=== PATIENT | male | born 1990 | race Caucasian/White ===

== ENCOUNTER 2019-03-29 13:22 | Emergency (ER) | payer SELFPAY ==
--- NOTE | 2019-03-29 13:47 | EDM.PDOC ---
<Harrison Reece - Last Filed: 03/29/19 19:44> ED HPI GENERAL MEDICAL PROBLEM - General Chief Complaint: Lower Extremity Injury/Pain Stated Complaint: RT ANKLE INJURY Time Seen by Provider: 03/29/19 13:35 - History of Present Illness INITIAL COMMENTS - FREE TEXT/NARRATIVE: Patient is a 28 year old male with a past medical history positive for multiple bilateral ankle injuiries who presents today 2 days status post a right ankle injury. The patient states he was [place] the dog park on [place] evening when he stepped into a hole and rolled his ankle. He had immediate pain and was unable to weight bear. He managed to get a brace, which he has been wearing since the injury. He has tried elevation, ice and tylenol, which does not seem to improve the pain. The patient complaints of pain and numbness in the right foot that radiates up his lateral leg. He rates his pain as a 6/10 with intermittent spikes to 7/10. He also reports "popping" with walking, and "feels like something is floating on the inside." He denies injury to his left ankle but states that it is sore following favoring of his right ankle. He has a history of previous ankle injuries, for which he has been told previously that he needs to wear continuous ankle braces. He does not currently wear continuous ankle braces. He also reports that he has a history of kidney injury and therefore cannot take NSAIDs. Onset: Sudden Onset Date: 03/27/19 Duration: Day(s): Location: Reports: Lower Extremity, Right Quality: Reports: Burning Right Ankle Pain Score (Numeric/FACES): 7 - Related Data Allergies Allergy/AdvReac Type Severity Reaction Status Date / Time amlodipine [From Norvasc] AdvReac Nausea and Verified 03/29/19 13:42 Vomiting diltiazem [From Cardizem] AdvReac Nausea and Verified 03/29/19 13:42 Vomiting Home Meds: Home Meds Albuterol [Proventil Neb Soln] 0 mg INH Q4HR PRN 03/29/19 [History] Budesonide/Formoterol Fumarate [Symbicort 160-4.5 Mcg Inhaler] 0 gm IH BID 03/29 [History] Cariprazine Hydrochloride [Vraylar] 3 mg PO DAILY 03/29/19 [History] ClonazePAM [KlonoPIN] 2 mg PO TID PRN 03/29/19 [History] Montelukast [Singulair] 10 mg PO DAILY 03/29/19 [History] Multivit-Min/Folic/Vit K/Lycop [Men's Multivitamin Tablet] 1 each PO DAILY 03/29 [History] Sodium Bicarbonate 650 mg PO DAILY 03/29/19 [History] Verapamil [Verapamil ER] 240 mg PO DAILY 03/29/19 [History] lamoTRIgine [Lamictal] 400 mg PO DAILY 03/29/19 [History] Past Medical History HEENT History: Reports: Impaired Vision Other HEENT History: Chronis Sinusitis Cardiovascular History: Reports: Hypertension Respiratory History: Reports: Asthma Gastrointestinal History: Reports: GI Bleed Genitourinary History: Reports: Acute Renal Failure, Dialysis, Peritoneal Other Genitourinary History: 2 urethral strictures. Posterior and anterior. Musculoskeletal History: Reports: Fracture Other Musculoskeletal History: Ankle, rib, C5-C6, skull, hand, wrist fractures. Rhabdo 2016. Neurological History: Reports: Brain Injury, Headaches, Chronic, Migraines, Seizure Other Neuro History: Asymmetric neurological reflexes. TBI. Psychiatric History: Reports: Anxiety, Bipolar, Depression Endocrine/Metabolic History: Reports: None Hematologic History: Reports: Blood Transfusion(s) Other Immunologic History: May have lupus. Oncologic (Cancer) History: Reports: None Dermatologic History: Reports: None - Infectious Disease History Infectious Disease History: Reports: None - Past Surgical History HEENT Surgical History: Reports: Oral Surgery Social & Family History - Tobacco Use Smoking Status *Q: Former Smoker Used Tobacco, but Quit: Yes Month/Year Tobacco Last Used: 12/2018 - Caffeine Use Caffeine Use: Reports: Coffee - Recreational Drug Use Recreational Drug Use: No Review of Systems - Review of Systems Review Of Systems: See Below Constitutional: Reports: No Symptoms Eyes: Reports: No Symptoms Ears: Reports: No Symptoms Nose: Reports: No Symptoms Mouth/Throat: Reports: No Symptoms Respiratory: Reports: No Symptoms Cardiovascular: Reports: No Symptoms GI/Abdominal: Reports: No Symptoms Genitourinary: Reports: No Symptoms Musculoskeletal: Reports: Joint Pain (Right ankle pain) Skin: Reports: No Symptoms Neurological: Reports: No Symptoms Psychiatric: Reports: No Symptoms ED EXAM, GENERAL - Physical Exam Exam: See Below Exam Limited By: No Limitations General Appearance: Alert, WD/WN, No Apparent Distress Ears: Normal External Exam, Hearing Grossly Normal Nose: Normal Inspection Throat/Mouth: Normal Inspection, Normal Voice Neck: Normal Inspection Respiratory/Chest: No Respiratory Distress, No Accessory Muscle Use Cardiovascular: Normal Peripheral Pulses, Regular Rate, Rhythm Course - Vital Signs Last Recorded V/S: Last Vital Signs Temp 97.6 F 03/29/19 13:26 Pulse 99 03/29/19 13:26 Resp 18 03/29/19 13:26 BP 123/73 03/29/19 13:26 Pulse Ox 94 L 03/29/19 13:26 - Orders/Labs/Meds Orders: Active Orders 24 hr Category Date Time Status Influenza Vaccine Charge [RC] .DISCHARGE Care 03/29/19 13:40 Active Meds: Medications Discontinued Medications Generic Name Dose Route Start Last Admin Trade Name Freq PRN Reason Stop Dose Admin Influenza Virus Vaccine 60 mcg 03/29/19 14:00 03/29/19 13:55 Fluzone Quad Syringe IM 03/29/19 14:01 60 mcg .ONCE ONE Administration Departure - Departure Disposition: Home, Self-Care Clinical Impression: Right ankle sprain Qualifiers: Encounter type: initial encounter Involved ligament of ankle: unspecified ligament Qualified Code(s): S93.401A - Sprain of unspecified ligament of right ankle, initial encounter - Discharge Information Instructions: Ankle Sprain, [id number] Referrals: PCP,None [Primary Care Provider] - Forms: ED Department Discharge Additional Instructions: Mejia wrap, ice packs and elevation to keep swelling down. Advil or tylenol as needed for discomfort. Rest and elevate leg and ankle as much as possible. Follow up with your medical provider if not much better within 10 to 14 days as expected. - My Orders Last 24 Hours: My Active Orders 03/29/19 13:40 Influenza Vaccine Charge [RC] .DISCHARGE - Assessment/Plan Last 24 Hours: My Active Orders 03/29/19 13:40 Influenza Vaccine Charge [RC] .DISCHARGE <Jose Manuel Clay - Last Filed: 03/29/19 21:13> ED HPI GENERAL MEDICAL PROBLEM - General Source of Information: Reports: Patient, RN Notes Reviewed Course - Re-Assessments/Exams Free Text/Narrative Re-Assessment/Exam: 03/29/19 21:12 Initial hx and exam was done by Tay Reece, medical student. I agree with her hx and exam as documented. I have also interviewed and examined patient. X rays no visible fx. Departure - Departure Time of Disposition: 14:33 Condition: Fair
[2019-03-29] MEDS ORDERED: FLU Vacc QS2019-20(6MOS+)/PF 60 MCG/0.5 ML SYRINGE IM ONE (14:00)
--- NOTE | 2019-03-29 14:39 | CR ---
Right ankle: Four views of the right ankle were obtained. Comparison: No prior ankle study. Ankle mortise is symmetric. No fracture, dislocation or other bony abnormality is seen. Impression: 1. No abnormality is appreciated on right ankle exam. Diagnostic code #1
== END 2019-03-29 14:43 | disposition home or self-care (01) ==
LOC: JD.ED 13:22
DX: S93.401A Sprain of unspecified ligament of right ankle, initial encounter (principal); I10 Essential (primary) hypertension; J45.909 Unspecified asthma, uncomplicated; Z88.8 Allergy status to other drugs, medicaments and biological substances; Z79.899 Other long term (current) drug therapy; Z87.891 Personal history of nicotine dependence; Z23 Encounter for immunization; X50.1XXA Overexertion from prolonged static or awkward postures, initial encounter; Y92.830 Public park as the place of occurrence of the external cause
CPT/HCPCS: 73610-26-RT; 73610-RT; 90471; 90686; 99282; 99283-25; G0008

== ENCOUNTER 2019-06-10 02:59 | Emergency (ER) | payer BC, OTHER ==
[2019-06-10] MEDS ORDERED: Orphenadrine 100 MG Tab.ER PO STA (03:25)
--- NOTE | 2019-06-10 03:29 | EDM.PDOC ---
ED HPI GENERAL MEDICAL PROBLEM - General Chief Complaint: Chest Pain Stated Complaint: [facility] Time Seen by Provider: 06/10/19 03:08 Source of Information: Reports: Patient, Family () History Limitations: Reports: No Limitations - History of Present Illness INITIAL COMMENTS - FREE TEXT/NARRATIVE: Mr. King is a pleasant 28-year-old male with a past medical history significant for hypertension, who brought to the ED by EMS after developing sudden onset central chest pressure around 01:25, he was driving. He states that the sensation is a pain, not a discomfort. It radiates across his chest, to his right shoulder, and down to his abdomen. It is made worse if he breathes deeply. No associated nausea, dyspnea, diaphoresis, or sense of impending doom. No prior similar symptoms. EMS did not give any medications. The patient's PCP is Leah Lan NP. His Urologist is in [place], [place]. 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: EKG Right Upper Chest Pain Score (Numeric/FACES): 8 - Related Data Allergies Allergy/AdvReac Type Severity Reaction Status Date / Time amlodipine [From Norvasc] AdvReac Nausea and Verified 06/10/19 03:03 Vomiting diltiazem [From Cardizem] AdvReac Nausea and Verified 06/10/19 03:03 Vomiting Home Meds: Home Meds Albuterol [Proventil Neb Soln] 0 mg INH Q4HR PRN 03/29/19 [History] Budesonide/Formoterol Fumarate [Symbicort 160-4.5 Mcg Inhaler] 0 gm IH BID 03/29 [History] ClonazePAM [KlonoPIN] 2 mg PO TID PRN 03/29/19 [History] Montelukast [Singulair] 10 mg PO DAILY 03/29/19 [History] Multivit-Min/Folic/Vit K/Lycop [Men's Multivitamin Tablet] 1 each PO DAILY 03/29 [History] Sodium Bicarbonate 650 mg PO DAILY 03/29/19 [History] Verapamil [Verapamil ER] 240 mg PO DAILY 03/29/19 [History] lamoTRIgine [Lamictal] 400 mg PO DAILY 03/29/19 [History] Citalopram Hydrobromide [Celexa] 20 mg PO DAILY 06/10/19 [History] Orphenadrine [Norflex] 1 tab PO Q12H PRN #14 tab.er 06/10/19 [Rx] Past Medical History HEENT History: Reports: Impaired Vision, Sinusitis (chronic) Cardiovascular History: Reports: Hypertension Respiratory History: Reports: Asthma (PFT-confirmed) Genitourinary History: Reports: Acute Renal Failure (2016, 2 rhabdomyolysis, on PD, resolved), Other (See Below) (Urethral stricture x 2) Musculoskeletal History: Reports: Fracture (Skull. C5-C6. Left hand. Left ribs. Right ankle.), Other (See Below) (Rhabdomyolysis 2016) Neurological History: Reports: Brain Injury (6 yrs old), Other (See Below) ( Cluster HAs) Psychiatric History: Reports: Anxiety, Bipolar, Depression Endocrine/Metabolic History: Reports: Obesity/BMI 30+ Hematologic History: Reports: Blood Transfusion(s) - Past Surgical History HEENT Surgical History: Reports: Oral Surgery (wisdom teeth extraction) Male Surgical History: Reports: Other (See Below) (Urethrotomy + dilation) Social & Family History - Tobacco Use Smoking Status *Q: Former Smoker Years of Tobacco use: 18 Packs/Tins Daily: 1.5 Month/Year Tobacco Last Used: Quit Dec 2018 - Caffeine Use Caffeine Use: Reports: Coffee - Alcohol Use Alcohol Use History: Yes Alcohol Use Frequency: Socially - Recreational Drug Use Recreational Drug Use: Yes Drug Use in Last 12 Months: Yes Recreational Drug Type: Reports: Ecstasy (last took 2013), LSD (Acid) (last took 2013), Marijuana/Hashish (last smoked 2015), Methamphetamine (last snorted/ smoked/injected 11/03/2018), Psilocybin (Mushrooms) (last took 2013) - Living Situation & Occupation Living situation: Reports: , with Spouse 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 ED EXAM, GENERAL - Physical Exam Exam: See Below Exam Limited By: No Limitations General Appearance: Alert, WD/WN, Mild Distress (Keeping eyes closed, speaking just louder than a whisper) Eye Exam: Bilateral Eye: EOMI, Normal Inspection Ears: Normal External Exam, Hearing Grossly Normal Nose: Normal Inspection Throat/Mouth: Normal Inspection, Normal Lips, Normal Voice, No Airway Compromise Head: Atraumatic, Normocephalic Neck: Normal Inspection, Full Range of Motion Respiratory/Chest: No Respiratory Distress, Lungs Clear, Normal Breath Sounds, No Accessory Muscle Use, Other (Reproducible tenderness to palpation of the patient's sternum and bilateral pectoralis muscles. Additionally, pain is reproduced by having the patient presses hands together with his arms outstretched in front of his chest, and with crossing either of his arms across his chest.) Cardiovascular: Normal Peripheral Pulses, Regular Rate, Rhythm, No Edema, No Gallop, No JVD, No Murmur, No Rub Peripheral Pulses: 4+: Radial (L), Radial (R) GI/Abdominal: Normal Bowel Sounds, Soft, Non-Tender, No Organomegaly, No Distention, No Abnormal Bruit, No Mass (Male) Exam: Deferred Rectal (Males) Exam: Deferred Back Exam: Normal Inspection, Full Range of Motion, NT Extremities: Normal Inspection, Normal Range of Motion, No Pedal Edema, Normal Capillary Refill Neurological: Alert, Oriented, Normal Cognition, No Motor/Sensory Deficits Psychiatric: Anxious Skin Exam: Warm, Dry, Intact, Normal Color, No Rash EKG INTERPRETATION EKG Date: 06/10/19 Time: 03:31 Rhythm: NSR Rate (Beats/Min): 70 [place]: Normal P-Wave: Present QRS: Normal ST-T: Normal QT: Normal Comparison: NA - No Prior EKG Course - Vital Signs Last Recorded V/S: Last Vital Signs Temp 36.2 C 06/10/19 03:01 Pulse 75 06/10/19 03:01 Resp 16 06/10/19 03:01 BP 135/97 H 06/10/19 03:01 Pulse Ox 96 06/10/19 03:01 - Orders/Labs/Meds Labs: Laboratory Tests 06/10/19 06/10/19 06/10/19 Range/Units 03:39 03:39 03:39 WBC 7.80 (4.23-9.07) K/mm3 RBC 5.38 (4.63-6.08) M/mm3 Hgb 14.9 (13.7-17.5) gm/dl Hct 44.1 (40.1-51.0) % MCV 82.0 (79.0-92.2) fl MCH 27.7 (25.7-32.2) pg MCHC 33.8 (32.2-35.5) g/dl RDW Std Deviation 38.6 (35.1-43.9) fL Plt Count 267 (163-337) K/mm3 MPV 9.3 L (9.4-12.3) fl Neut % (Auto) 49.8 (34.0-67.9) % Lymph % (Auto) 36.8 (21.8-53.1) % Hinds % (Auto) 9.0 (5.3-12.2) % Eos % (Auto) 3.5 (0.8-7.0) Baso % (Auto) 0.5 (0.1-1.2) % Neut # (Auto) 3.89 (1.78-5.38) K/mm3 Lymph # (Auto) 2.87 (1.32-3.57) K/mm3 Hinds # (Auto) 0.70 (0.30-0.82) K/mm3 Eos # (Auto) 0.27 (0.04-0.54) K/mm3 Baso # (Auto) 0.04 (0.01-0.08) K/mm3 D-Dimer, Quantitative 0.28 (0.19-0.50) mg/L Sodium 136 (136-145) mEq/L Potassium 3.2 L (3.5-5.1) mEq/L Chloride 103 (98-107) mEq/L Carbon Dioxide 20 L (21-32) mEq/L Anion Gap 16.2 H (5-15) BUN 18 (7-18) mg/dL Creatinine 1.1 (0.7-1.3) mg/dL Est Cr Clr Drug Dosing 95.00 mL/min Estimated GFR (MDRD) > 60 (>60) mL/min BUN/Creatinine Ratio 16.4 (14-18) Glucose 105 (74-106) mg/dL Calcium 9.4 (8.5-10.1) mg/dL Total Bilirubin 0.3 (0.2-1.0) mg/dL AST 36 (15-37) U/L ALT 78 H (16-63) U/L Alkaline Phosphatase 57 (46-116) U/L Troponin I < 0.017 (0.00-0.056) ng/mL NT-Pro-B Natriuret Pep (0-125) pg/mL Total Protein 7.3 (6.4-8.2) g/dl Albumin 3.9 (3.4-5.0) g/dl Globulin 3.4 gm/dL Albumin/Globulin Ratio 1.2 (1-2) 06/10/19 Range/Units 03:39 WBC (4.23-9.07) K/mm3 RBC (4.63-6.08) M/mm3 Hgb (13.7-17.5) gm/dl Hct (40.1-51.0) % MCV (79.0-92.2) fl MCH (25.7-32.2) pg MCHC (32.2-35.5) g/dl RDW Std Deviation (35.1-43.9) fL Plt Count (163-337) K/mm3 MPV (9.4-12.3) fl Neut % (Auto) (34.0-67.9) % Lymph % (Auto) (21.8-53.1) % Hinds % (Auto) (5.3-12.2) % Eos % (Auto) (0.8-7.0) Baso % (Auto) (0.1-1.2) % Neut # (Auto) (1.78-5.38) K/mm3 Lymph # (Auto) (1.32-3.57) K/mm3 Hinds # (Auto) (0.30-0.82) K/mm3 Eos # (Auto) (0.04-0.54) K/mm3 Baso # (Auto) (0.01-0.08) K/mm3 D-Dimer, Quantitative (0.19-0.50) mg/L Sodium (136-145) mEq/L Potassium (3.5-5.1) mEq/L Chloride (98-107) mEq/L Carbon Dioxide (21-32) mEq/L Anion Gap (5-15) BUN (7-18) mg/dL Creatinine (0.7-1.3) mg/dL Est Cr Clr Drug Dosing mL/min Estimated GFR (MDRD) (>60) mL/min BUN/Creatinine Ratio (14-18) Glucose (74-106) mg/dL Calcium (8.5-10.1) mg/dL Total Bilirubin (0.2-1.0) mg/dL AST (15-37) U/L ALT (16-63) U/L Alkaline Phosphatase (46-116) U/L Troponin I (0.00-0.056) ng/mL NT-Pro-B Natriuret Pep 40 (0-125) pg/mL Total Protein (6.4-8.2) g/dl Albumin (3.4-5.0) g/dl Globulin gm/dL Albumin/Globulin Ratio (1-2) Meds: Medications Discontinued Medications Generic Name Dose Route Start Last Admin Trade Name Ernesto PRN Reason Stop Dose Admin Orphenadrine Citrate 100 mg 06/10/19 03:25 06/10/19 03:35 Norflex PO 06/10/19 03:26 100 mg ONETIME STA Administration - Re-Assessments/Exams Free Text/Narrative Re-Assessment/Exam: 06/10/19 03:27 The patient's history and physical exam strongly suggest a musculoskeletal etiology. I have ordered a cardiac workup that I anticipate will be unremarkable. In the meantime, the patient will be treated with oral Norflex. He is already on celecoxib. 06/10/19 04:51 2-view chest radiograph appears to be grossly normal. The cardiac silhouette is within normal limits. No pulmonary vascular congestion. No pleural effusions. No focal infiltrate. No pneumothorax. Formal read per the Radiologist pending. The patient's CBC is unremarkable. His CMP is remarkable for potassium mildly depressed at 3.2, bicarbonate mildly depressed at 20, with an anion gap slightly elevated at 16.2, and an ALT slightly elevated at 78, with an AST normal at 36. The remainder of his CMP is unremarkable. His troponin is undetectably low. His D-dimer is within normal limits at 0.28. 06/10/19 05:00 Test results discussed with the patient and his . The patient is feeling much better already. I explained that his symptoms appear to be due to muscle strain. The patient recalled that on 06/08/2019, he slipped and fell, and in order to not break his wrist, he rolled, squeezing his shoulders. The patient will be discharged home with a prescription for Norflex and a note that allows him to return to work. Departure - Departure Time of Disposition: 05:01 Disposition: Home, Self-Care 01 Condition: Good Clinical Impression: Musculoskeletal chest pain - Discharge Information *PRESCRIPTION DRUG MONITORING PROGRAM REVIEWED*: Not Applicable *COPY OF PRESCRIPTION DRUG MONITORING REPORT IN PATIENT LEANNA: Not Applicable Prescriptions: Orphenadrine [Norflex] 1 tab PO Q12H PRN #14 tab.er PRN Reason: Muscle Spasm Instructions: Chest Wall Pain Referrals: Ryanne Lan NP [Primary Care Provider] - Forms: ED Department Discharge, ED Return to Work/School Form Additional Instructions: You were seen in the emergency room for sudden onset central chest pain, while driving. Workup in the ER included blood work, a chest x-ray, and an ECG. The entire workup was unremarkable. You have not suffered a heart attack. You do not have a blood clot in your lungs. You do not have pneumonia. You do not have a collapsed lung. Based on your history, physical exam, and ER tests, the cause of your chest pain is most likely musculoskeletal in etiology. You have been started on the muscle relaxant Norflex, and a prescription for Norflex has been sent to the [facility], located just south and across the [address] from [facility]. Take one tablet of Norflex every 12 hours, as prescribed. Additional Norflex, we recommend that you continue to take your usually prescribed Celebrex. If any other problems, please do not hesitate to return to the ER. Sepsis Event Note - Evaluation Sepsis Screening Result: No Definite Risk - Focused Exam Date Exam was Performed: 06/12/19 Time Exam was Performed: 07:39
--- NOTE | 2019-06-10 07:57 | CR ---
Chest: Two views of the chest were obtained. Comparison: No prior chest imaging. Heart size and mediastinum are normal. Lungs are clear. Bony structures are unremarkable. Impression: 1. Nothing acute is appreciated on two-view chest x-ray. Diagnostic code #1 This report was dictated in [place] Standard Time
== END 2019-06-10 05:05 | disposition home or self-care (01) ==
LOC: JD.ED 02:59
DX: R07.89 Other chest pain (principal); I10 Essential (primary) hypertension; F41.9 Anxiety disorder, unspecified; F32.9 Major depressive disorder, single episode, unspecified; E66.9 Obesity, unspecified; Z98.890 Other specified postprocedural states; Z79.899 Other long term (current) drug therapy; Z88.8 Allergy status to other drugs, medicaments and biological substances; Z87.891 Personal history of nicotine dependence
CPT/HCPCS: 36415; 71046; 80053; 83880; 84484; 85025; 85379; 93005; 99285; A9270; 93010; 99283

== ENCOUNTER 2019-07-16 18:15 | Emergency (ER) | payer BC ==
[2019-07-16] MEDS ORDERED: Ondansetron 4 MG/2 ML SDV IVPUSH ONE (19:13)
[2019-07-16] MEDS ORDERED: HYDROmorphone 1 MG/ML Syringe IVPUSH STA (19:13)
--- NOTE | 2019-07-16 19:23 | EDM.PDOC ---
ED HPI GENERAL MEDICAL PROBLEM - General Chief Complaint: Abdominal Pain Stated Complaint: ABDOMINAL PAIN Time Seen by Provider: 07/16/19 18:43 Source of Information: Reports: Patient, RN Notes Reviewed History Limitations: Reports: No Limitations - History of Present Illness INITIAL COMMENTS - FREE TEXT/NARRATIVE: Patient is a 28-year-old male who presents to the ED for the evaluation of increasing abdominal pain. Patient notes that he is having some right lower quadrant abdominal pain since last , and this does seem to radiate to the left lower quadrant. 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 He notes that the bumps in the road do seem to aggravate it but not as much as the lateral movement. Patient developed tenderness into his left upper quadrant today as well which caused him to seek care. He was evaluated at the walk-in clinic but was told to come to the ER for further evaluation. Patient is denying any sort of fevers or chills, nausea/vomiting/diarrhea. Patient states that he has been having issues with his bowels as well, he states that he has been having some real painful bowel movements, he states that he feels full, and then strains quite a bit and has had some loose stools. Patient has not been on any sort of recent antibiotics. Patient notes that his primary care provider is Ryanne Lan. He does have problems with urinary strictures, but states he is not having any more issues than normal with urination. Lower Abdomen Pain Score (Numeric/FACES): 5 - Related Data Allergies Allergy/AdvReac Type Severity Reaction Status Date / Time amlodipine [From Norvasc] AdvReac Nausea and Verified 07/16/19 18:23 Vomiting diltiazem [From Cardizem] AdvReac Nausea and Verified 07/16/19 18:23 Vomiting Home Meds: Home Meds Albuterol [Proventil Neb Soln] 2 puff INH Q4HR PRN 03/29/19 [History] Budesonide/Formoterol Fumarate [Symbicort 160-4.5 Mcg Inhaler] 1 puff IH BID 06/16 [History] ClonazePAM [KlonoPIN] 2 mg PO TID PRN 03/29/19 [History] Montelukast [Singulair] 10 mg PO DAILY 03/29/19 [History] Multivit-Min/Folic/Vit K/Lycop [Men's Multivitamin Tablet] 1 each PO DAILY 03/29 [History] Sodium Bicarbonate 650 mg PO DAILY 03/29/19 [History] Dicyclomine [Bentyl] 20 mg PO TID PRN #21 tab 07/16/19 [Rx] Orphenadrine [Norflex] 100 mg PO BID PRN #14 tab 07/16/19 [Rx] Past Medical History HEENT History: Reports: Impaired Vision, Sinusitis Other HEENT History: Chronis Sinusitis Cardiovascular History: Reports: Hypertension Respiratory History: Reports: Asthma Gastrointestinal History: Reports: GI Bleed Genitourinary History: Reports: Acute Renal Failure, Other (See Below) Other Genitourinary History: urethral strictures Musculoskeletal History: Reports: Fracture, Other (See Below) Other Musculoskeletal History: Ankle, rib, C5-C6, skull, hand, wrist fractures. Rhabdo 2016. Neurological History: Reports: Brain Injury, Other (See Below) Other Neuro History: Asymmetric neurological reflexes. TBI. 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 Denies: Black Stool, Bloody Stool, Nausea, Vomiting : Denies: Dysuria, Frequency, Urgency Musculoskeletal: Denies: Back Pain ED EXAM, GI/ABD - Physical Exam Exam: See Below Exam Limited By: No Limitations General Appearance: Alert, WD/WN, No Apparent Distress Eyes: Bilateral: Normal Appearance Ears: Normal External Exam Nose: Normal Inspection Throat/Mouth: Normal Inspection, Normal Lips, Normal Teeth, Normal Gums, Normal Oropharynx, Normal Voice, No Airway Compromise Head: Atraumatic, Normocephalic Neck: Normal Inspection Respiratory/Chest: No Respiratory Distress, Lungs Clear, Normal Breath Sounds, No Accessory Muscle Use, Chest Non-Tender Cardiovascular: Normal Peripheral Pulses, Regular Rate, Rhythm, No Edema, No Murmur GI/Abdominal Exam: Normal Bowel Sounds, Soft, No Distention, No Mass, Tender ( generalized, but worse over Left abdomen) Extremities: Normal Inspection, Normal Capillary Refill Neurological: Alert, Oriented, Normal Cognition, No Motor/Sensory Deficits Psychiatric: Normal Affect, Normal Mood Skin Exam: Warm, Dry, Intact, Normal Color, No Rash Course - Vital Signs Last Recorded V/S: Last Vital Signs Temp 97.1 F 07/16/19 18:21 Pulse 92 07/16/19 18:21 Resp 19 07/16/19 18:21 BP 146/91 H 07/16/19 18:21 Pulse Ox 96 07/16/19 18:21 - Orders/Labs/Meds Orders: Active Orders 24 hr Category Date Time Status Abdomen Pelvis w Cont [CT] Stat Exams 07/16/19 19:13 Ordered UA W/MICROSCOPIC [URIN] Stat Lab 07/16/19 19:13 Ordered Sodium Chloride 0.9% [Normal Saline] 1,000 ml Med 07/16/19 19:15 Ordered IV ASDIRECTED Sodium Chloride 0.9% [Saline Flush] Med 07/16/19 20:30 Active 10 ml FLUSH ONETIME PRN Medication Orders Sodium Chloride (Normal Saline) 1,000 mls @ 999 mls/hr IV ASDIRECTED MALI Last Admin: 07/16/19 21:28 Dose: 999 mls/hr Infusion: 07/16/19 20:53 Dose: 999 mls/hr Admin: 07/16/19 19:52 Dose: 999 mls/hr Sodium Chloride (Saline Flush) 10 ml FLUSH ONETIME PRN PRN Reason: KEEP VEIN OPEN Last Admin: 07/16/19 21:34 Dose: 10 ml Admin: 07/16/19 19:38 Dose: 10 ml Labs: Laboratory Tests 02/18/20 02/18/20 02/18/20 Range/Units 19:36 19:36 22:40 WBC 7.48 (4.23-9.07) K/mm3 RBC 5.85 (4.63-6.08) M/mm3 Hgb 16.3 (13.7-17.5) gm/dl Hct 49.2 (40.1-51.0) % MCV 84.1 (79.0-92.2) fl MCH 27.9 (25.7-32.2) pg MCHC 33.1 (32.2-35.5) g/dl RDW Std Deviation 40.8 (35.1-43.9) fL Plt Count 295 (163-337) K/mm3 MPV 9.5 (9.4-12.3) fl Neutrophils % (Manual) 62 H (40-60) % Band Neutrophils % 0 (0-10) % Lymphocytes % (Manual) 29 (20-40) % Atypical Lymphs % 0 % Monocytes % (Manual) 6 (2-10) % Eosinophils % (Manual) 3 (0.8-7.0) % Basophils % (Manual) 0 L (0.2-1.2) Platelet Estimate Adequate Plt Morphology Comment Normal RBC Morph Comment Normal Sodium 141 (136-145) mEq/L Potassium 4.1 (3.5-5.1) mEq/L Chloride 104 (98-107) mEq/L Carbon Dioxide 25 (21-32) mEq/L Anion Gap 16.1 H (5-15) BUN 15 (7-18) mg/dL Creatinine 0.8 (0.7-1.3) mg/dL Est Cr Clr Drug Dosing 130.63 mL/min Estimated GFR (MDRD) > 60 (>60) mL/min BUN/Creatinine Ratio 18.8 H (14-18) Glucose 144 H (74-106) mg/dL Calcium 9.4 (8.5-10.1) mg/dL Total Bilirubin 0.3 (0.2-1.0) mg/dL AST 24 (15-37) U/L ALT 79 H (16-63) U/L Alkaline Phosphatase 83 (46-116) U/L Total Protein 7.8 (6.4-8.2) g/dl Albumin 3.8 (3.4-5.0) g/dl Globulin 4.0 gm/dL Albumin/Globulin Ratio 1.0 (1-2) Lipase 129 (73-393) U/L Urine Color Yellow (Yellow) Urine Appearance Clear (Clear) Urine pH 6.0 (5.0-8.0) Ur Specific [place] 1.015 (1.005-1.030) Urine Protein Negative (Negative) Urine Glucose (UA) Negative (Negative) Urine Ketones Negative (Negative) Urine Occult Blood Negative (Negative) Urine Nitrite Negative (Negative) Urine Bilirubin Negative (Negative) Urine Urobilinogen 0.2 (0.2-1.0) Ur Leukocyte Esterase Trace H (Negative) Meds: Medications Generic Name Dose Route Start Last Admin Trade Name Freq PRN Reason Stop Dose Admin Sodium Chloride 1,000 mls @ 999 mls/hr 07/16/19 19:15 07/16/19 21:28 Normal Saline IV 999 mls/hr ASDIRECTED MALI Administration Sodium Chloride 10 ml 07/16/19 20:30 07/16/19 21:34 Saline Flush FLUSH 10 ml ONETIME PRN Administration KEEP VEIN OPEN Discontinued Medications Generic Name Dose Route Start Last Admin Trade Name Freq PRN Reason Stop Dose Admin Diatrizoate Meglum/Diatrizoate Sod 60 ml 07/16/19 20:30 07/16/19 21:33 Gastrografin 37% PO 07/16/19 20:31 60 ml ONETIME ONE Administration Hydromorphone HCl 1 mg 07/16/19 19:13 07/16/19 19:38 Dilaudid IVPUSH 07/16/19 19:14 1 mg ONETIME STA Administration Sodium Chloride 1,000 mls @ 999 mls/hr 07/16/19 21:30 07/16/19 21:45 Normal Saline IV 07/16/19 22:30 999 mls/hr ONETIME ONE Administration Iopamidol 100 ml 07/16/19 20:30 07/16/19 21:34 Isovue-300 (61%) IVPUSH 07/16/19 20:31 100 ml ONETIME ONE Administration Ondansetron HCl 4 mg 07/16/19 19:13 07/16/19 19:38 Zofran IVPUSH 07/16/19 19:14 4 mg ONETIME ONE Administration - Re-Assessments/Exams Free Text/Narrative Re-Assessment/Exam: 07/16/19 19:27 Patient presents to the ED for evaluation of abdominal pain. Did order CBC, CMP , lipase, urinalysis, abdomen pelvis CT with oral and IV contrast, he will also get 1 mg Dilaudid and 4 mg Zofran for initial management with some IV fluids. Unsure to the etiology of his pain, as it seems to have traveled. But with his bowel issues, is suggestive of possible diverticulitis versus colitis. 07/16/19 23:01 CT is back, and demonstrates no acute intra-abdominal abnormalities, labs are also pretty unremarkable. Patient is still having cramping type pains. Suspect may be an abdominal muscle strain as well. He was also relating issues with bowels where the either has diarrhea, or is constipated at times. Ice told him he should probably be further evaluated for IBS through his primary care provider, and he will do this at the next available time. Departure - Departure Time of Disposition: 23:04 Disposition: Home, Self-Care 01 Condition: Fair Clinical Impression: Abdominal wall strain Qualifiers: Encounter type: initial encounter Qualified Code(s): S39.011A - Strain of muscle, fascia and tendon of abdomen, initial encounter Constipation Qualifiers: Constipation type: other constipation type Qualified Code(s): K59.09 - Other constipation - Discharge Information *PRESCRIPTION DRUG MONITORING PROGRAM REVIEWED*: No *COPY OF PRESCRIPTION DRUG MONITORING REPORT IN PATIENT LEANNA: No Instructions: Muscle Strain, [id number], Diet for Irritable Bowel Syndrome, Irritable Bowel Syndrome, Adult Referrals: Ryanne Lan NP [Primary Care Provider] - Forms: ED Department Discharge, ED Return to Work/School Form Additional Instructions: You were evaluated in the ER today regarding your abdominal pain. You had laboratory evaluation and a CT done today, all of which were unremarkable and within normal limits. Your pain is most likely due to abdominal muscle strain in nature, you were given some Norflex for management of this, you may also take 500 mg Tylenol every 4-6 hours as needed for further pain relief. Do not exceed over 4000 mg of Tylenol in a 24-hour time span however. You may also try a heating pad to your abdomen, to help provide further relief. It is highly suspicious that you might be suffering from irritable bowel syndrome as well. Recommend further evaluation by your primary care provider in regards to this. You were given some tablets of dicyclomine, this is for abdominal cramping, due to the suspected irritable bowel syndrome. Please take 1 tab 3 times a day as needed for further abdominal cramping. Your CT did demonstrate quite a bit of stool throughout your colon, recommend that you start taking MiraLAX on a daily basis and also start taking probiotics to provide good gut health and help regulate your bowels. Please return to the ER at any time however if your symptoms change or worsen. Sepsis Event Note - Evaluation Sepsis Screening Result: No Definite Risk - Focused Exam Vital Signs: Vital Signs Temp Pulse Resp BP Pulse Ox 07/16/19 18:21 97.1 F 92 19 146/91 H 96 Date Exam was Performed: 07/16/19 Time Exam was Performed: 23:01 - My Orders Last 24 Hours: My Active Orders 07/16/19 19:13 Abdomen Pelvis w Cont [CT] Stat UA W/MICROSCOPIC [URIN] Stat 07/16/19 19:15 Sodium Chloride 0.9% [Normal Saline] 1,000 ml IV ASDIRECTED 07/16/19 20:30 Sodium Chloride 0.9% [Saline Flush] 10 ml FLUSH ONETIME PRN - Assessment/Plan Last 24 Hours: My Active Orders 07/16/19 19:13 Abdomen Pelvis w Cont [CT] Stat UA W/MICROSCOPIC [URIN] Stat 07/16/19 19:15 Sodium Chloride 0.9% [Normal Saline] 1,000 ml IV ASDIRECTED 07/16/19 20:30 Sodium Chloride 0.9% [Saline Flush] 10 ml FLUSH ONETIME PRN
[2019-07-16] MEDS: Sodium Chloride 0.9% 10 ML Syringe FLUSH PRN ×2 (19:38→21:34)
[2019-07-16] MEDS: Sodium Chloride 0.9% 1,000 ML IV SCH ×2 (19:52→21:28)
[2019-07-16] MEDS ORDERED: Diatrizoate Meglumine/Diatrizoate Sodium 37% 120 ML Bottle PO ONE (20:30)
[2019-07-16] MEDS ORDERED: Iopamidol 612 MG/ML 100 ML Bottle IVPUSH ONE (20:30)
[2019-07-16] MEDS ORDERED: Sodium Chloride 0.9% 1,000 ML IV ONE (21:30)
[2019-07-16] MEDS ORDERED: Orphenadrine 100 MG Tab.ER PO ONE (23:02)
[2019-07-16] MEDS ORDERED: Dicyclomine 10 MG Cap PO ONE (23:02)
--- NOTE | 2019-07-17 07:43 | CT ---
CT abdomen and pelvis Technique: Multiple axial sections were obtained from above the dome of the diaphragm inferiorly through the pubic symphysis. Intravenous and oral contrast was utilized. Delayed images were obtained through the bladder. Comparison: No prior abdominal imaging. Findings: Visualized lung bases show nothing acute. Diffuse fatty infiltration is identified within the liver. Spleen appears within normal limits. Adrenal glands show no nodule. Pancreas is within normal limits. Kidneys show symmetric contrast enhancement without hydronephrosis or mass. Gallbladder contains no calcified gallstones. Kidneys show symmetric contrast enhancement with no hydronephrosis or mass. Aorta shows no aneurysm. No retroperitoneal adenopathy or mesenteric abnormalities are seen. Appendix is seen which is normal in size. No pelvic mass or adenopathy is noted. No free fluid or inflammatory change is seen. Contrast is noted within both distal ureters. Contrast is also noted within the bladder. Bone window settings were reviewed. No acute osseous finding is appreciated. Impression: 1. Diffuse fatty infiltration within the liver. 2. Nothing acute is appreciated on CT study of the abdomen and pelvis. Diagnostic code #2 This report was dictated in [place] Standard Time I agree with preliminary report from [facility], finalized on , 10:59 PM Central Time
== END 2019-07-16 23:27 | disposition home or self-care (01) ==
LOC: JD.ED 18:15
DX: S39.011A Strain of muscle, fascia and tendon of abdomen, initial encounter (principal); K59.09 Other constipation; I10 Essential (primary) hypertension; J45.909 Unspecified asthma, uncomplicated; E66.9 Obesity, unspecified; Z68.41 Body mass index [BMI] 40.0-44.9, adult; Z88.8 Allergy status to other drugs, medicaments and biological substances; Z87.891 Personal history of nicotine dependence; Z79.899 Other long term (current) drug therapy; Z79.51 Long term (current) use of inhaled steroids; X58.XXXA Exposure to other specified factors, initial encounter
CPT/HCPCS: 36415; 74177; 80053; 81001; 83690; 85007; 85027; 96361; 96374; 96375; 99284; A9270; J1170; J2405; J7030; Q9963; Q9967

== ENCOUNTER 2019-07-31 19:57 | Emergency (ER) | payer BC ==
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
[2019-07-31 21:33] LABS: ACETAMINOPHEN 0 ug/mL (10-30)
== END 2019-08-01 01:00 ==
LOC: JD.ED 19:57
DX: R45.851 Suicidal ideations (principal); E66.9 Obesity, unspecified; I10 Essential (primary) hypertension; J45.909 Unspecified asthma, uncomplicated; Z88.8 Allergy status to other drugs, medicaments and biological substances; Z87.891 Personal history of nicotine dependence
CPT/HCPCS: 36415; 80053; 80306; 80307; 84443; 85007; 85027; 99284; 99285

== ENCOUNTER 2019-09-07 17:04 | Emergency (ER) | payer BC ==
[2019-09-07] MEDS ORDERED: Sodium Chloride 0.9% 10 ML Syringe FLUSH PRN (17:51)
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
--- NOTE | 2019-09-08 10:48 | CR ---
Chest: PA and lateral views of the chest were obtained. Comparison: Prior chest x-ray of 06/10/19. Heart size and mediastinum are normal. Lungs are clear with no acute parenchymal change. Bony structures are unremarkable. Impression: 1. Nothing acute is appreciated on 2 view chest x-ray. Diagnostic code #1 Study was dictated in MDT
== END 2019-09-07 19:30 | disposition home or self-care (01) ==
LOC: JD.ED 17:04
DX: I10 Essential (primary) hypertension (principal); J45.909 Unspecified asthma, uncomplicated; E66.9 Obesity, unspecified; Z68.41 Body mass index [BMI] 40.0-44.9, adult; Z88.8 Allergy status to other drugs, medicaments and biological substances
CPT/HCPCS: 36415; 71046; 71046-26; 80053; 83735; 83880; 84484; 85007; 85027; 85610; 85730; 93005; 93010; 99283; 99284-25

== ENCOUNTER 2019-12-20 16:58 | Emergency (ER) | payer SELFPAY ==
--- NOTE | 2019-12-20 17:17 | EDM.PDOC ---
<Henry Lozada - Last Filed: 12/20/19 17:12> ED HPI GENERAL MEDICAL PROBLEM - General Chief Complaint: Chest Pain Stated Complaint: CHEST PAIN AND SOB Time Seen by Provider: 12/20/19 17:12 Left Chest Pain Score (Numeric/FACES): 5 - Related Data Allergies Allergy/AdvReac Type Severity Reaction Status Date / Time amlodipine [From Norvasc] AdvReac Severe Nausea and Verified 12/20/19 17:17 Vomiting diltiazem [From Cardizem] AdvReac Severe Nausea and Verified 12/20/19 17:17 Vomiting Home Meds: Home Meds Albuterol [Proventil Neb Soln] 2 puff INH Q4HR PRN 03/29/19 [History] Budesonide/Formoterol Fumarate [Symbicort 160-4.5 Mcg Inhaler] 1 puff IH BID 03/29/19 [History] Metoprolol Succinate [Toprol XL 50mg] 50 mg PO DAILY 12/20/19 [History] Sodium Bicarbonate 650 mg PO DAILY 12/20/19 [History] metFORMIN HCl [Metformin HCl ER] 500 mg PO DAILY 12/20/19 [History] Past Medical History HEENT History: Reports: Impaired Vision, Sinusitis Other HEENT History: Chronis Sinusitis Cardiovascular History: Reports: Hypertension Respiratory History: Reports: Asthma Gastrointestinal History: Reports: GI Bleed Genitourinary History: Reports: Acute Renal Failure, Other (See Below) Other Genitourinary History: urethral strictures Musculoskeletal History: Reports: Fracture, Other (See Below) Other Musculoskeletal History: Ankle, rib, C5-C6, skull, hand, wrist fractures. Rhabdo 2016. Neurological History: Reports: Brain Injury, Other (See Below) Other Neuro History: Asymmetric neurological reflexes. TBI. Psychiatric History: Reports: Anxiety, Bipolar, Depression, Psych Hospitalization(s), Suicidal Ideation Endocrine/Metabolic History: Reports: Obesity/BMI 30+ Hematologic History: Reports: Blood Transfusion(s) Immunologic History: Reports: Other (See Below) Other Immunologic History: May have lupus. 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 Your workup included blood work, chest xray, and an EKG of your heart. Your cardiac enzymes were also rechecked at 4 hours after the onset of pain and were found to be normal. Based on the results, you are not having a heart attack and you do not have a blood clot in your lungs. Recommend that you go home and rest. Ensure you are taking in an adequate amount of fluid. You may use over the counter ty lenol or ibuprofen as needed for pain. If you should experience any new or worsening symptoms of concern, please do not hesitate to return to the emergency department. Sepsis Event Note (ED) - Evaluation Sepsis Screening Result: No Definite Risk <Nadya Calero - Last Filed: 12/20/19 22:41> ED HPI GENERAL MEDICAL PROBLEM - General Source of Information: Reports: Patient History Limitations: Reports: No Limitations - History of Present Illness INITIAL COMMENTS - FREE TEXT/NARRATIVE: Patient is a 29-year-old male who presents to the emergency department with acute onset of left-sided chest pain. He states he was at home eating and having lemonade when the pain developed. States that he may feel "a little "lightheaded and nauseous but he is not entirely sure of that. He does also have what he describes as very mild tingling in his left arm. He also feels slightly short of breath. Denies diaphoresis. Symptoms started around 315 this afternoon. Patient does have a history of anxiety and has been on benzodiazepines in the past, however he states that he stopped these in July and will not go on them again. States he had a physical dependence to them. He denies any significant cardiac history other than than hypertension. He has never had a heart attack that he is aware of. He has a history of type 2 diabetes for which she is taking oral hypoglycemics. ED ROS GENERAL - Review of Systems Review Of Systems: See Below Constitutional: Reports: No Symptoms. Denies: Fever, Chills, Weakness HEENT: Reports: No Symptoms Respiratory: Reports: Shortness of Breath. Denies: Wheezing, Cough Cardiovascular: Reports: Chest Pain, Lightheadedness. Denies: Palpitations Endocrine: Reports: No Symptoms GI/Abdominal: Reports: Nausea. Denies: Abdominal Pain, Vomiting : Reports: No Symptoms Musculoskeletal: Reports: No Symptoms Skin: Reports: No Symptoms Neurological: Reports: No Symptoms Psychiatric: Reports: Anxiety Hematologic/Lymphatic: Reports: No Symptoms Immunologic: Reports: No Symptoms ED EXAM, GENERAL - Physical Exam Exam: See Below Exam Limited By: No Limitations General Appearance: Alert, WD/WN, No Apparent Distress, Anxious (Mildly) Respiratory/Chest: No Respiratory Distress, Lungs Clear, Normal Breath Sounds, No Accessory Muscle Use, Chest Non-Tender Cardiovascular: Normal Peripheral Pulses, Regular Rate, Rhythm, No Edema, No Gallop, No JVD, No Murmur, No Rub GI/Abdominal: Normal Bowel Sounds, Soft, Non-Tender, No Organomegaly, No Distention, No Abnormal Bruit, No Mass Neurological: Alert, Oriented, CN II-XII Intact, Normal Cognition, Normal Gait, Normal Reflexes, No Motor/Sensory Deficits Psychiatric: Normal Affect, Normal Mood Skin Exam: Warm, Dry, Intact, Normal Color, No Rash EKG INTERPRETATION EKG Date: 12/20/19 Time: 17:07 Rhythm: NSR Rate (Beats/Min): 82 [place]: Normal P-Wave: Present QRS: Normal ST-T: Normal QT: Normal Comparison: NA - No Prior EKG Course - Vital Signs Last Recorded V/S: Last Vital Signs Temp 98.0 F 12/20/19 18:52 Pulse 81 12/20/19 18:52 Resp 16 12/20/19 18:52 BP 122/89 12/20/19 18:52 Pulse Ox 96 12/20/19 18:52 - Orders/Labs/Meds Orders: Active Orders 24 hr Category Date Time Status EKG Documentation Completion [RC] ASDIRECTED Care 12/20/19 17:46 Active EKG 12 Lead [EK] Stat Ther 12/20/19 17:44 Ordered Labs: Laboratory Tests 12/20/19 12/20/19 12/20/19 Range/Units 18:03 18:03 18:03 WBC 7.88 (4.23-9.07) K/mm3 RBC 5.12 (4.63-6.08) M/mm3 Hgb 14.4 (13.7-17.5) gm/dl Hct 43.6 (40.1-51.0) % MCV 85.2 (79.0-92.2) fl MCH 28.1 (25.7-32.2) pg MCHC 33.0 (32.2-35.5) g/dl RDW Std Deviation 40.3 (35.1-43.9) fL Plt Count 263 (163-337) K/mm3 MPV 9.6 (9.4-12.3) fl Neut % (Auto) 48.7 (34.0-67.9) % Lymph % (Auto) 35.2 (21.8-53.1) % [place] % (Auto) 9.8 (5.3-12.2) % Eos % (Auto) 5.5 (0.8-7.0) Baso % (Auto) 0.5 (0.1-1.2) % Neut # (Auto) 3.85 (1.78-5.38) K/mm3 Lymph # (Auto) 2.77 (1.32-3.57) K/mm3 [place] # (Auto) 0.77 (0.30-0.82) K/mm3 Eos # (Auto) 0.43 (0.04-0.54) K/mm3 Baso # (Auto) 0.04 (0.01-0.08) K/mm3 D-Dimer, Quantitative 0.27 (0.19-0.50) mg/L Sodium 137 (136-145) mEq/L Potassium 3.5 (3.5-5.1) mEq/L Chloride 103 (98-107) mEq/L Carbon Dioxide 23 (21-32) mEq/L Anion Gap 14.5 (5-15) BUN 16 (7-18) mg/dL Creatinine 0.9 (0.7-1.3) mg/dL Est Cr Clr Drug Dosing 118.92 mL/min Estimated GFR (MDRD) > 60 (>60) mL/min BUN/Creatinine Ratio 17.8 (14-18) Glucose 95 (74-106) mg/dL Calcium 9.2 (8.5-10.1) mg/dL Total Bilirubin 0.4 (0.2-1.0) mg/dL AST 46 H (15-37) U/L ALT 121 H (16-63) U/L Alkaline Phosphatase 72 (46-116) U/L Troponin I < 0.017 (0.00-0.056) ng/mL Total Protein 7.4 (6.4-8.2) g/dl Albumin 3.8 (3.4-5.0) g/dl Globulin 3.6 gm/dL Albumin/Globulin Ratio 1.1 (1-2) / Range/Units 20:00 WBC (4.23-9.07) K/mm3 RBC (4.63-6.08) M/mm3 Hgb (13.7-17.5) gm/dl Hct (40.1-51.0) % MCV (79.0-92.2) fl MCH (25.7-32.2) pg MCHC (32.2-35.5) g/dl RDW Std Deviation (35.1-43.9) fL Plt Count (163-337) K/mm3 MPV (9.4-12.3) fl Neut % (Auto) (34.0-67.9) % Lymph % (Auto) (21.8-53.1) % [place] % (Auto) (5.3-12.2) % Eos % (Auto) (0.8-7.0) Baso % (Auto) (0.1-1.2) % Neut # (Auto) (1.78-5.38) K/mm3 Lymph # (Auto) (1.32-3.57) K/mm3 [place] # (Auto) (0.30-0.82) K/mm3 Eos # (Auto) (0.04-0.54) K/mm3 Baso # (Auto) (0.01-0.08) K/mm3 D-Dimer, Quantitative (0.19-0.50) mg/L Sodium (136-145) mEq/L Potassium (3.5-5.1) mEq/L Chloride (98-107) mEq/L Carbon Dioxide (21-32) mEq/L Anion Gap (5-15) BUN (7-18) mg/dL Creatinine (0.7-1.3) mg/dL Est Cr Clr Drug Dosing mL/min Estimated GFR (MDRD) (>60) mL/min BUN/Creatinine Ratio (14-18) Glucose (74-106) mg/dL Calcium (8.5-10.1) mg/dL Total Bilirubin (0.2-1.0) mg/dL AST (15-37) U/L ALT (16-63) U/L Alkaline Phosphatase (46-116) U/L Troponin I < 0.017 (0.00-0.056) ng/mL Total Protein (6.4-8.2) g/dl Albumin (3.4-5.0) g/dl Globulin gm/dL Albumin/Globulin Ratio (1-2) Meds: Medications Discontinued Medications Generic Name Dose Route Start Last Admin Trade Name Freq PRN Reason Stop Dose Admin Aspirin 324 mg 12/20/19 18:36 12/20/19 18:46 Aspirin PO 12/20/19 18:37 324 mg ONETIME ONE Administration - Re-Assessments/Exams Free Text/Narrative Re-Assessment/Exam: 12/20/19 18:59 Patient's work-up was grossly unremarkable. Troponin was negative. D-dimer was negative. EKG was normal. Chest x-ray was normal. We will plan to recheck a troponin II hours from the initial draw which is approximately 4-1/2 hours from the onset of symptoms. 12/20/19 2100 Repeat troponin was also found to be normal. We will discharge the patient home. Discharge instructions as documented. Departure - Departure Time of Disposition: 21:09 Condition: Good - Discharge Information *PRESCRIPTION DRUG MONITORING PROGRAM REVIEWED*: No *COPY OF PRESCRIPTION DRUG MONITORING REPORT IN PATIENT LEANNA: No Sepsis Event Note (ED) - Focused Exam Vital Signs: Vital Signs Temp Pulse Resp BP Pulse Ox 12/20/19 18:52 98.0 F 81 16 122/89 96 12/20/19 17:09 98.1 F 93 14 148/99 H 100
[2019-12-20] MEDS ORDERED: Aspirin 81 MG Tab.Chew PO ONE (18:36)
--- NOTE | 2019-12-20 18:37 | CR ---
Chest: Portable view of the chest was obtained. Comparison: No prior chest imaging is available. Cardiac silhouette mediastinum are normal. Lungs are clear with no acute parenchymal change. Bony structures show nothing acute. Impression: 1. Nothing acute is seen on portable chest x-ray. Diagnostic code #1 This report was dictated in MDT
== END 2019-12-20 21:37 | disposition home or self-care (01) ==
LOC: JD.ED 16:58
DX: R07.89 Other chest pain (principal); I10 Essential (primary) hypertension; J45.909 Unspecified asthma, uncomplicated; E66.9 Obesity, unspecified; Z79.899 Other long term (current) drug therapy; Z68.41 Body mass index [BMI] 40.0-44.9, adult; Z88.8 Allergy status to other drugs, medicaments and biological substances
CPT/HCPCS: 36415; 71045; 80053; 84484; 85025; 85379; 93005; 99285; A9270; 93010; 99282

== ENCOUNTER 2020-05-29 09:37 | Emergency (ER) | payer BC ==
--- NOTE | 2020-05-29 09:53 | EDM.PDOC ---
ED HPI GENERAL MEDICAL PROBLEM - General Chief Complaint: Head Injury Stated Complaint: [facility] Time Seen by Provider: 05/29/20 09:45 - History of Present Illness INITIAL COMMENTS - FREE TEXT/NARRATIVE: 29-year-old male brought into the emergency room by [place] [facility] after sustaining a head injury. Approximately 6 AM this morning the patient was climbing into a semitrailer and bumped his head into a large piece of fixed steel. He hit his head in the occipital area just slightly to the right side. The patient felt dizzy after this and this really has not improved he has had some nausea associated with th is but no vomiting. He had no loss of consciousness. His symptoms persist and he says his vision is off a little bit. He describes it like he has a mild deviation in his glasses prescription. The patient also is getting a little more anxious. 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 Patient had a significant head injury many years ago where he fell headfirst into some concrete about 6 feet. This required no neurosurgical intervention and the patient did well. He was observed for a couple hours and then discharged, however he states he had a much bigger goose egg. Head Pain Score (Numeric/FACES): 6 - Related Data Allergies Allergy/AdvReac Type Severity Reaction Status Date / Time amlodipine [From Norvasc] AdvReac Severe Nausea and Verified 12/20/19 17:17 Vomiting diltiazem [From Cardizem] AdvReac Severe Nausea and Verified 12/20/19 17:17 Vomiting Home Meds: Home Meds Albuterol [Proventil Neb Soln] 2 puff INH Q4HR PRN 03/29/19 [History] Budesonide/Formoterol Fumarate [Symbicort 160-4.5 Mcg Inhaler] 1 puff IH BID 03/29/19 [History] Metoprolol Succinate [Toprol XL 50mg] 50 mg PO DAILY 12/20/19 [History] Sodium Bicarbonate 650 mg PO DAILY 12/20/19 [History] metFORMIN HCl [Metformin HCl ER] 500 mg PO DAILY 12/20/19 [History] Past Medical History HEENT History: Reports: Impaired Vision, Sinusitis Other HEENT History: Chronis Sinusitis Cardiovascular History: Reports: Hypertension Respiratory History: Reports: Asthma Gastrointestinal History: Reports: GI Bleed Genitourinary History: Reports: Acute Renal Failure, Other (See Below) Other Genitourinary History: urethral strictures Musculoskeletal History: Reports: Fracture, Other (See Below) Other Musculoskeletal History: Ankle, rib, C5-C6, skull, hand, wrist fractures. Rhabdo 2016. Neurological History: Reports: Brain Injury, Other (See Below) Other Neuro History: Asymmetric neurological reflexes. TBI. Psychiatric History: Reports: Anxiety, Bipolar, Depression, Psych Hospitalization(s), Suicidal Ideation Endocrine/Metabolic History: Reports: Obesity/BMI 30+ Hematologic History: Reports: Blood Transfusion(s) Immunologic History: Reports: Other (See Below) Other Immunologic History: May have lupus. 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 Denies: Abdominal Pain : Reports: No Symptoms Musculoskeletal: Reports: No Symptoms Skin: Reports: No Symptoms Neurological: Reports: Dizziness, Headache, Other (Mild vision changes). Denies: Confusion, Numbness, Seizure, Syncope Psychiatric: Reports: Anxiety (Very mild symptoms he does not want treatment at this time) ED EXAM, HEAD INJURY - Physical Exam Exam: See Below Exam Limited By: No Limitations General Appearance: Alert, No Apparent Distress Head: Other (Laceration just right of midline in the occipital area this is very superficial) Nexus Criteria: No: Posterior, Midline Cervical Tenderness, Evidence of Intoxication, Altered Level of Consciousness, Focal Neurological Deficit, Painful Distraction Injuries Eyes: Bilateral Eye: EOMI, Normal Inspection, PERRL Ears: Normal External Exam, Normal Canal, Hearing Grossly Normal, Normal TMs Nose: Normal Inspection, Normal Mucousa, No Blood Throat/Mouth: Normal Inspection, Normal Lips, Normal Teeth, Normal Gums, Normal Oropharynx, Normal Voice, No Airway Compromise Neck: Full Range of Motion, Normal Alignment, Normal Inspection, Other (No bony discomfort but he has some vague discomfort in the paraspinous muscles). 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, No Motor/Sensory Deficits, Alert, Normal Mood/Affect, Oriented x 3 - Janeth Coma Score Best Eye Response (Janeth): (4) Open Spontaneously Best Verbal Response (Janeth): (5) Oriented Best Motor Response ([place]): (6) Obeys Commands Course - Vital Signs Last Recorded V/S: Last Vital Signs Temp 36.7 C 05/29/20 09:47 Pulse 84 05/29/20 09:47 Resp 20 05/29/20 09:47 BP 129/83 05/29/20 09:47 Pulse Ox 98 05/29/20 09:47 - Orders/Labs/Meds Meds: Medications Discontinued Medications Generic Name Dose Route Start Last Admin Trade Name Ernesto PRN Reason Stop Dose Admin Hydroxyzine HCl 25 mg 05/29/20 09:54 05/29/20 10:24 Vistaril IM 05/29/20 09:55 Not Given ONETIME ONE - Re-Assessments/Exams Free Text/Narrative Re-Assessment/Exam: 05/29/20 10:45 With persistent symptoms nearly 4 hours after the time of injury I have ordered a head CT. 05/29/20 11:[address] is interpreted as negative by the radiologist. I did review the CT soon after it was done and did not appreciate any acute changes. We will get the patient ready for discharge, he would like to go home now Departure - Departure Time of Disposition: 11:29 Disposition: Home, Self-Care 01 Clinical Impression: Head injury - Discharge Information Forms: ED Department Discharge Additional Instructions: Return to the emergency room with any questions problems or worsening symptoms. Use Tylenol, or acetaminophen up to 1000 mg every 6 hours as needed for discomfort. Do not return to work today get plenty of rest. If you are feeling well tomorrow you may return to work, however, do not overdo it. Follow-up with your regular physician this next week for recheck. Sepsis Event Note (ED) - Focused Exam Vital Signs: Vital Signs Temp Pulse Resp BP Pulse Ox 05/29/20 09:47 36.7 C 84 20 129/83 98
[2020-05-29] MEDS ORDERED: hydrOXYzine HCl 25 MG/ML SDV IM ONE (09:54)
--- NOTE | 2020-05-29 11:10 | CT ---
Head CT Technique: Multiple axial sections through the brain were obtained. Intravenous contrast was not utilized. Reconstructed coronal and sagittal images were also obtained. Findings: Ventricles along with basal cisterns and sulci over the convexities are within normal limits for the patient's age. No abnormal parenchymal densities are seen. No evidence of intracranial hemorrhage. No midline shift or mass-effect is seen. Visualized mastoid sinuses are clear. Mild areas of mucosal thickening are seen within the paranasal sinuses which is most likely pre-existing. No acute calvarial finding is appreciated. Impression: 1. Slight mucosal thickening within the paranasal sinuses which is pre-existing. 2. Nothing acute is appreciated on noncontrast head CT study. Diagnostic code #2
== END 2020-05-29 11:42 | disposition home or self-care (01) ==
LOC: JD.ED 09:37
DX: S01.01XA Laceration without foreign body of scalp, initial encounter (principal); I10 Essential (primary) hypertension; J45.909 Unspecified asthma, uncomplicated; E66.9 Obesity, unspecified; Z68.41 Body mass index [BMI] 40.0-44.9, adult; Z88.8 Allergy status to other drugs, medicaments and biological substances; Z79.899 Other long term (current) drug therapy; W22.8XXA Striking against or struck by other objects, initial encounter
CPT/HCPCS: 70450; 70450-26; 99283; 99284-25

== ENCOUNTER 2020-06-01 19:09 | Emergency (ER) | payer BC ==
--- NOTE | 2020-06-01 20:11 | EDM.PDOC ---
ED HPI GENERAL MEDICAL PROBLEM - General Chief Complaint: Abdominal Pain Stated Complaint: UPPER ABDOMINAL PAINS Time Seen by Provider: 06/01/20 19:23 Source of Information: Reports: Patient, RN Notes Reviewed History Limitations: Reports: No Limitations - History of Present Illness INITIAL COMMENTS - FREE TEXT/NARRATIVE: Patient is a 29-year-old male presenting to the emergency department with complaints of right upper quadrant abdominal pain that began approximately 4 hours ago. States that he was at work when the pain began. He denies any history of gallbladder problems. There was no correlation with food. The last thing that he ate was a Mandarin orange 3 hours ago. Approximately 6 hours ago, he ate an apple. He has no nausea, vomiting, or diarrhea. Denies any fever or chills. Right Upper Abdomen Pain Score (Numeric/FACES): 5 - Related Data Allergies Allergy/AdvReac Type Severity Reaction Status Date / Time amlodipine [From Norvasc] AdvReac Severe Nausea and Verified 06/01/20 19:27 Vomiting diltiazem [From Cardizem] AdvReac Severe Nausea and Verified 06/01/20 19:27 Vomiting Home Meds: Home Meds Albuterol [Proventil Neb Soln] 2 puff INH Q4HR PRN 03/29/19 [History] Budesonide/Formoterol Fumarate [Symbicort 160-4.5 Mcg Inhaler] 1 puff IH BID 03/29/19 [History] Metoprolol Succinate [Toprol XL 50mg] 50 mg PO DAILY 12/20/19 [History] Sodium Bicarbonate 650 mg PO DAILY 12/20/19 [History] metFORMIN HCl [Metformin HCl ER] 500 mg PO DAILY 12/20/19 [History] Past Medical History HEENT History: Reports: Impaired Vision, Sinusitis Other HEENT History: Chronis Sinusitis Cardiovascular History: Reports: Hypertension Respiratory History: Reports: Asthma Gastrointestinal History: Reports: GI Bleed Genitourinary History: Reports: Acute Renal Failure, Other (See Below) Other Genitourinary History: urethral strictures Musculoskeletal History: Reports: Fracture, Other (See Below) Other Musculoskeletal History: Ankle, rib, C5-C6, skull, hand, wrist fractures. Rhabdo 2016. Neurological History: Reports: Brain Injury, Other (See Below) Other Neuro History: Asymmetric neurological reflexes. TBI. Psychiatric History: Reports: Anxiety, Bipolar, Depression, Psych Hospitalization(s), Suicidal Ideation Endocrine/Metabolic History: Reports: Diabetes, Type II, Obesity/BMI 30+ Hematologic History: Reports: Blood Transfusion(s) Immunologic History: Reports: Other (See Below) Other Immunologic History: May have lupus. Oncologic (Cancer) History: Reports: None Dermatologic History: Reports: None - Infectious Disease History Infectious Disease History: Reports: None - Past Surgical History HEENT Surgical History: Reports: Oral Surgery Male Surgical History: Reports: Other (See Below) Other Male Surgeries/Procedures: Urethrotomy Social & Family History - Family History Family Medical History: No Pertinent Family History - Tobacco Use Tobacco Use Status *Q: Former Tobacco User Used Tobacco, but Quit: Yes Month/Year Tobacco Last Used: 2019 - Caffeine Use Caffeine Use: Reports: Coffee - Recreational Drug Use Recreational Drug Use: Yes Drug Use in Last 12 Months: No Recreational Drug Type: Reports: Cocaine, Methamphetamine Recreational Drug Last Use: 2019 - Living Situation & Occupation Living situation: Reports: , with Spouse Occupation: Employed ([employer]) ED ROS GENERAL - Review of Systems Review Of Systems: See Below Constitutional: Reports: No Symptoms. Denies: Fever, Chills HEENT: Reports: No Symptoms Respiratory: Reports: No Symptoms Cardiovascular: Reports: No Symptoms Endocrine: Reports: No Symptoms GI/Abdominal: Reports: Abdominal Pain. Denies: Diarrhea, Nausea, Vomiting : Reports: No Symptoms Musculoskeletal: Reports: No Symptoms Skin: Reports: No Symptoms Neurological: Reports: No Symptoms Psychiatric: Reports: No Symptoms Hematologic/Lymphatic: Reports: No Symptoms Immunologic: Reports: No Symptoms ED EXAM, GI/ABD - Physical Exam Exam: See Below Exam Limited By: No Limitations General Appearance: Alert, WD/WN, No Apparent Distress Respiratory/Chest: No Respiratory Distress, Lungs Clear, Normal Breath Sounds, No Accessory Muscle Use, Chest Non-Tender Cardiovascular: Normal Peripheral Pulses, Regular Rate, Rhythm, No Edema, No Gallop, No JVD, No Murmur, No Rub GI/Abdominal Exam: Normal Bowel Sounds, Soft, No Organomegaly, No Distention, No Abnormal Bruit, No Mass, Pelvis Stable, Tender (Right upper quadrant). No: Guarding, Rigid Neurological: Alert, Oriented, CN II-XII Intact, Normal Cognition, Normal Gait, Normal Reflexes, No Motor/Sensory Deficits Psychiatric: Normal Affect, Normal Mood Skin Exam: Warm, Dry, Intact, Normal Color, No Rash Course - Vital Signs Last Recorded V/S: Last Vital Signs Temp 96.9 F 06/01/20 19:21 Pulse 77 06/01/20 19:21 Resp 118 H 06/01/20 19:21 BP 137/91 H 06/01/20 19:21 Pulse Ox 95 06/01/20 19:21 - Orders/Labs/Meds Orders: Active Orders 24 hr Category Date Time Status Abdomen Ltd [US] Stat Exams 06/01/20 19:40 Taken Labs: Laboratory Tests 06/01/20 06/01/20 Range/Units 20:00 20:00 WBC 8.68 (4.23-9.07) K/mm3 RBC 5.53 (4.63-6.08) M/mm3 Hgb 15.4 (13.7-17.5) gm/dl Hct 46.7 (40.1-51.0) % MCV 84.4 (79.0-92.2) fl MCH 27.8 (25.7-32.2) pg MCHC 33.0 (32.2-35.5) g/dl RDW Std Deviation 40.6 (35.1-43.9) fL Plt Count 270 (163-337) K/mm3 MPV 9.4 (9.4-12.3) fl Neut % (Auto) 55.3 (34.0-67.9) % Lymph % (Auto) 30.0 (21.8-53.1) % [place] % (Auto) 9.0 (5.3-12.2) % Eos % (Auto) 5.2 (0.8-7.0) Baso % (Auto) 0.3 (0.1-1.2) % Neut # (Auto) 4.80 (1.78-5.38) K/mm3 Lymph # (Auto) 2.60 (1.32-3.57) K/mm3 [place] # (Auto) 0.78 (0.30-0.82) K/mm3 Eos # (Auto) 0.45 (0.04-0.54) K/mm3 Baso # (Auto) 0.03 (0.01-0.08) K/mm3 Sodium 138 (136-145) mEq/L Potassium 3.8 (3.5-5.1) mEq/L Chloride 102 (98-107) mEq/L Carbon Dioxide 28 (21-32) mEq/L Anion Gap 11.8 (5-15) BUN 15 (7-18) mg/dL Creatinine 0.9 (0.7-1.3) mg/dL Est Cr Clr Drug Dosing 118.92 mL/min Estimated GFR (MDRD) > 60 (>60) mL/min BUN/Creatinine Ratio 16.7 (14-18) Glucose 86 (74-106) mg/dL Calcium 9.6 (8.5-10.1) mg/dL Total Bilirubin 0.6 (0.2-1.0) mg/dL AST 28 (15-37) U/L ALT 62 (16-63) U/L Alkaline Phosphatase 57 (46-116) U/L C-Reactive Protein 1.0 (<1.0) mg/dL Total Protein 7.8 (6.4-8.2) g/dl Albumin 4.1 (3.4-5.0) g/dl Globulin 3.7 gm/dL Albumin/Globulin Ratio 1.1 (1-2) Lipase 155 (73-393) U/L - Re-Assessments/Exams Free Text/Narrative Re-Assessment/Exam: Patient is a 29-year-old male presenting to the emergency department with acute right upper quadrant abdominal pain. Symptoms began about 4 hours ago while he was at work. He denies any nausea, vomiting, diarrhea, fever, or chills. He has not had any greasy foods recently. Denies any history of gallbladder dysfunction. He has not nauseous and does not feel that he needs any pain medications at this time. I have ordered CBC, CMP, CRP, lipase, and an ultrasound of the right upper quadrant. 06/01/20 21:09 Hematology was grossly unremarkable. Lipase is normal, CRP is normal, WBCs are normal, kidney and liver function are normal. Ultrasound of the right upper quadrant showed no acute findings. Liver is enlarged, measuring 21 cm. Hepatic steatosis. Patient states he does have a history of fatty liver. Patient does still have some discomfort in the right upper quadrant but states it is fairly mild. Recommend Tylenol and ibuprofen as needed for discomfort. We will give him a shot of Toradol here tonight. Discussed that if the pain does not resolve over the next few days, he should follow-up with his PCP. If anything should worsen, return to the ER. Discharge instructions as documented. Departure - Departure Time of Disposition: 21:10 Disposition: Home, Self-Care 01 Preliminary Cause of *Q: Sepsis & Multi System Organ Failure Clinical Impression: Abdominal pain Qualifiers: Abdominal location: right upper quadrant Qualified Code(s): R10.11 - Right upper quadrant pain - Discharge Information *PRESCRIPTION DRUG MONITORING PROGRAM REVIEWED*: No *COPY OF PRESCRIPTION DRUG MONITORING REPORT IN PATIENT LEANNA: No Instructions: Abdominal Pain, Adult, [id number] Referrals: Bebo Kowalski MD [Primary Care Provider] - Forms: ED Department Discharge Additional Instructions: You were seen in the emergency department today for right upper quadrant abdominal pain. Work-up included blood work as well as an ultrasound of the right upper quadrant abdomen. Results your work-up were found to be normal. Your liver is enlarged, however your liver function is completely normal. Gallbladder shows no signs of infection or gallstones. Recommend Tylenol and ibuprofen as needed for discomfort. If pain fails to resolve over the next few days, follow-up with your primary care provider. If you experience any new or worsening symptoms of concern, please not hesitate to return to the emergency department. Sepsis Event Note (ED) - Evaluation Sepsis Screening Result: No Definite Risk - Focused Exam Vital Signs: Vital Signs Temp Pulse Resp BP Pulse Ox 06/01/20 19:21 96.9 F 77 118 H 137/91 H 95 - My Orders Last 24 Hours: My Active Orders 06/01/20 19:40 Abdomen Ltd [US] Stat - Assessment/Plan Last 24 Hours: My Active Orders 06/01/20 19:40 Abdomen Ltd [US] Stat
[2020-06-01] MEDS ORDERED: Ketorolac 60 MG/2 ML SDV IM ONE (21:09)
--- NOTE | 2020-06-02 11:37 | US ---
Limited abdominal ultrasound: Multiple real-time images of the upper right abdomen were obtained. Comparison: Prior CT abdomen and pelvis study of 07/16/19. Findings: Liver shows diffuse fatty infiltration. Liver is also enlarged. Gallbladder contains no shadowing gallstones. No gallbladder wall thickening is seen. CHD is seen and appears normal. Bowel obscures the common bile duct. Right kidney shows no hydronephrosis or mass and has a length of 12.6 cm. Pancreas appears within normal limits. Main portal vein shows normal hepatopedal flow. Impression: 1. Fatty infiltration within the liver with hepatomegaly. 2. No additional abnormality is definitely appreciated on right upper quadrant abdominal ultrasound. Diagnostic code #2 I agree with preliminary report from [facility], finalized on 06/01/20, 9:54 PM PEDIATRIC CLINICAL DIETICIAN
== END 2020-06-01 21:21 | disposition home or self-care (01) ==
LOC: JD.ED 19:09
DX: R10.11 Right upper quadrant pain (principal); I10 Essential (primary) hypertension; J45.909 Unspecified asthma, uncomplicated; E11.9 Type 2 diabetes mellitus without complications; E66.9 Obesity, unspecified; Z68.41 Body mass index [BMI] 40.0-44.9, adult; Z87.891 Personal history of nicotine dependence; Z88.8 Allergy status to other drugs, medicaments and biological substances; Z79.899 Other long term (current) drug therapy
CPT/HCPCS: 36415; 76705; 76705-26; 80053; 83690; 85025; 86140; 99284-25

== ENCOUNTER 2020-06-05 00:19 | Emergency (ER) | payer BC ==
[2020-06-05] MEDS ORDERED: Ondansetron 4 MG/2 ML SDV IVPUSH ONE (01:02)
[2020-06-05] MEDS ORDERED: HYDROmorphone 1 MG/ML Syringe IVPUSH STA (01:02)
--- NOTE | 2020-06-05 01:08 | EDM.PDOC ---
ED HPI GENERAL MEDICAL PROBLEM - General Chief Complaint: Abdominal Pain Stated Complaint: extreme abdononal and back pain Time Seen by Provider: 06/05/20 00:43 Source of Information: Reports: Patient, Old Records (ED visit 06/01/2020) History Limitations: Reports: No Limitations - History of Present Illness INITIAL COMMENTS - FREE TEXT/NARRATIVE: Mr. King is a pleasant 29-year-old gentleman who now presents to the ED with right upper quadrant pain radiating to his right lower quadrant pain since this past 06/01/2019. Medical records indicate that the patient was seen in this ED on that date, and that she was hemodynamically stable and afebrile. Work-up included a CBC, CMP, lipase level, and CRP, along with an ultrasound of his right upper quadrant. His ultrasound found a fatty liver, otherwise, his work-up was completely unremarkable. He was advised to take [id number] ibuprofen, and if his symptoms persisted, to follow-up with his PCP. The patient now returns to the ED stating that he pain has persisted. It radiates to his right lower quadrant, but not to his back. He has not identified any modifiers. He has had associated nausea and vomiting. No recent fever. No urinary symptoms. He has been taking ibuprofen. He has not followed up with his PCP. Here in the ED tonight, the patient's initial BP is found to be slightly elevated at 145/78, otherwise he is hemodynamically stable, afebrile, saturating 100% on room air. Prior to Monday, the patient denies having a recent fever, chills, sore throat, ear pain, nasal or sinus congestion, cough, dyspnea, chest pain, palpitations, nausea, vomiting, constipation, diarrhea, abdominal pain, urinary symptoms, recent weight gain or weight loss, recent bloody bowel movements or black bowel movements, recent joint aches, headaches, or rashes. The patient's PCP is Dr. Bebo Kowalski. His Urologist is Dr. Hetal Fischer. He states that he already received an influenza vaccine this season. Right Upper Abdomen Pain Score (Numeric/FACES): 7 - Related Data Allergies Allergy/AdvReac Type Severity Reaction Status Date / Time amlodipine [From Norvasc] AdvReac Severe Nausea and Verified 06/05/20 00:27 Vomiting diltiazem [From Cardizem] AdvReac Severe Nausea and Verified 06/05/20 00:27 Vomiting Home Meds: Home Meds Albuterol [Proventil Neb Soln] 2 puff INH Q4HR PRN 03/29/19 [History] Budesonide/Formoterol Fumarate [Symbicort 160-4.5 Mcg Inhaler] 1 puff IH BID 1 05/29/18 [History] Metoprolol Succinate [Toprol XL 50mg] 50 mg PO DAILY 12/20/19 [History] Sodium Bicarbonate 650 mg PO DAILY 12/20/19 [History] metFORMIN HCl [Metformin HCl ER] 500 mg PO DAILY 12/20/19 [History] Acetaminophen/HYDROcodone [I[place] 325-5 MG] 1 - 2 tab PO Q6H PRN #20 tablet 06/05/20 [Rx] Ondansetron [Zofran ODT] 1 tab PO Q8H PRN #10 tab.dis 06/05/20 [Rx] Past Medical History HEENT History: Reports: Impaired Vision, Sinusitis (chronic) Cardiovascular History: Reports: Hypertension Respiratory History: Reports: Asthma (PFT-proven) Gastrointestinal History: Reports: Other (See Below) (Hepatic steatosis) Genitourinary History: Reports: Acute Renal Failure (2016 secondary to rhabdomyolysis -> PD -> resolved), Other (See Below) (Urethral stricture, s/p urethrotomy/dilation) Musculoskeletal History: Reports: Fracture (skull, C5, C6, left ribs, left hand, right ankle), Other (See Below) (Rhabdomyolysis 2016) Neurological History: Reports: Brain Injury (6 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), Other (See Below) (Cluster HAs) Psychiatric History: Reports: Anxiety, Bipolar, Depression, Psych Hospitalization(s), Suicidal Ideation Endocrine/Metabolic History: Reports: Diabetes, Type II, Obesity/BMI 30+ Hematologic History: Reports: Blood Transfusion(s) - Past Surgical History HEENT Surgical History: Reports: Oral Surgery (dental extractions) Male Surgical History: Reports: Other (See Below) (Urethrotomy/dilation x 1) Social & Family History - Tobacco Use Tobacco Use Status *Q: Former Tobacco User Years of Tobacco use: 15 Packs/Tins Daily: 1 Month/Year Tobacco Last Used: Quit Dec 2018 - Caffeine Use Caffeine Use: Reports: Coffee - Alcohol Use Alcohol Use History: Yes Alcohol Use Frequency: Socially - Recreational Drug Use Recreational Drug Use: Yes Drug Use in Last 12 Months: No Recreational Drug Type: Reports: Cocaine (last smoked 2015), LSD (Acid) (last took 2013), Methamphetamine (last snorted, smoked October 2018), PCP (Riki Dust) (last snorted 2005) - Living Situation & Occupation Living situation: Reports: , with Spouse, with Family (1 child) Occupation: Employed ([employer]) ED ROS GENERAL - Review of Systems Review Of Systems: Comprehensive ROS is negative, except as noted in HPI. ED EXAM, GI/ABD - Physical Exam Exam: See Below Exam Limited By: No Limitations General Appearance: Alert, WD/WN, Mild Distress (appears uncomfortable) Eyes: Bilateral: Normal Appearance, EOMI Ears: Normal External Exam, Hearing Grossly Normal Nose: Normal Inspection Throat/Mouth: Normal Inspection, Normal Lips, Normal Voice, No Airway Compromise Head: Atraumatic, Normocephalic Neck: Normal Inspection, Full Range of Motion Respiratory/Chest: No Respiratory Distress, Lungs Clear, Normal Breath Sounds, No Accessory Muscle Use Cardiovascular: Normal Peripheral Pulses, Regular Rate, Rhythm, No Gallop, No JVD, No Murmur, No Rub GI/Abdominal Exam: Normal Bowel Sounds, Soft, No Organomegaly, No Distention, No Abnormal Bruit, No Mass, Tender (Right upper quadrant only. Nontender elsewhere. True Carrington sign present.) Back Exam: Normal Inspection, Full Range of Motion. No: CVA Tenderness (L), CVA Tenderness (R) Extremities: Normal Inspection, Normal Range of Motion, Normal Capillary Refill Neurological: Alert, Oriented, Normal Cognition, No Motor/Sensory Deficits Psychiatric: Normal Affect Skin Exam: Warm, Dry, Intact, Normal Color, No Rash Course - Vital Signs Last Recorded V/S: Last Vital Signs Temp 37.3 C 06/05/20 00:24 Pulse 87 06/05/20 00:24 Resp 18 06/05/20 00:24 BP 145/78 H 06/05/20 00:24 Pulse Ox 100 06/05/20 00:24 - Orders/Labs/Meds Orders: Active Orders 24 hr Category Date Time Status Abdomen Pelvis w Cont [CT] Stat Exams 06/05/20 01:02 Taken Sodium Chloride 0.9% [Normal Saline] 1,000 ml Med 06/05/20 01:15 Active IV ASDIRECTED Medication Orders Sodium Chloride (Normal Saline) 1,000 mls @ 150 mls/hr IV ASDIRECTED MALI Last Admin: 06/05/20 01:10 Dose: 150 mls/hr Documented by: LUCIEN Labs: Laboratory Tests 06/05/20 06/05/20 06/05/20 Range/Units 01:09 01:09 01:10 WBC 9.36 H (4.23-9.07) K/mm3 RBC 5.07 (4.63-6.08) M/mm3 Hgb 14.3 (13.7-17.5) gm/dl Hct 43.0 (40.1-51.0) % MCV 84.8 (79.0-92.2) fl MCH 28.2 (25.7-32.2) pg MCHC 33.3 (32.2-35.5) g/dl RDW Std Deviation 39.9 (35.1-43.9) fL Plt Count 254 (163-337) K/mm3 MPV 9.5 (9.4-12.3) fl Neutrophils % (Manual) 53 (40-60) % Band Neutrophils % 0 (0-10) % Lymphocytes % (Manual) 36 (20-40) % Atypical Lymphs % 0 % Monocytes % (Manual) 5 (2-10) % Eosinophils % (Manual) 5 (0.8-7.0) % Basophils % (Manual) 1 (0.2-1.2) Platelet Estimate Adequate RBC Morph Comment Normal Sodium 138 (136-145) mEq/L Potassium 3.6 (3.5-5.1) mEq/L Chloride 104 (98-107) mEq/L Carbon Dioxide 27 (21-32) mEq/L Anion Gap 10.6 (5-15) BUN 11 (7-18) mg/dL Creatinine 1.1 (0.7-1.3) mg/dL Est Cr Clr Drug Dosing 97.30 mL/min Estimated GFR (MDRD) > 60 (>60) mL/min BUN/Creatinine Ratio 10.0 L (14-18) Glucose 142 H (74-106) mg/dL Calcium 8.8 (8.5-10.1) mg/dL Total Bilirubin 0.4 (0.2-1.0) mg/dL AST 20 (15-37) U/L ALT 54 (16-63) U/L Alkaline Phosphatase 67 (46-116) U/L Total Protein 7.2 (6.4-8.2) g/dl Albumin 3.7 (3.4-5.0) g/dl Globulin 3.5 gm/dL Albumin/Globulin Ratio 1.1 (1-2) Lipase 106 (73-393) U/L Urine Color (Yellow) Urine Appearance (Clear) Urine pH (5.0-8.0) Ur Specific [place] (1.005-1.030) Urine Protein (Negative) Urine Glucose (UA) (Negative) Urine Ketones (Negative) Urine Occult Blood (Negative) Urine Nitrite (Negative) Urine Bilirubin (Negative) Urine Urobilinogen (0.2-1.0) Ur Leukocyte Esterase (Negative) Urine RBC (0-5) /hpf Urine WBC (0-5) /hpf Ur Squamous Epith Cells (0-5) /hpf Urine Bacteria (FEW) /hpf Urine Mucus (FEW) /hpf SARS-CoV-2 RNA (DANIKA) Negative (NEGATIVE) 06/05/20 Range/Units 02:22 WBC (4.23-9.07) K/mm3 RBC (4.63-6.08) M/mm3 Hgb (13.7-17.5) gm/dl Hct (40.1-51.0) % MCV (79.0-92.2) fl MCH (25.7-32.2) pg MCHC (32.2-35.5) g/dl RDW Std Deviation (35.1-43.9) fL Plt Count (163-337) K/mm3 MPV (9.4-12.3) fl Neutrophils % (Manual) (40-60) % Band Neutrophils % (0-10) % Lymphocytes % (Manual) (20-40) % Atypical Lymphs % % Monocytes % (Manual) (2-10) % Eosinophils % (Manual) (0.8-7.0) % Basophils % (Manual) (0.2-1.2) Platelet Estimate RBC Morph Comment Sodium (136-145) mEq/L Potassium (3.5-5.1) mEq/L Chloride (98-107) mEq/L Carbon Dioxide (21-32) mEq/L Anion Gap (5-15) BUN (7-18) mg/dL Creatinine (0.7-1.3) mg/dL Est Cr Clr Drug Dosing mL/min Estimated GFR (MDRD) (>60) mL/min BUN/Creatinine Ratio (14-18) Glucose (74-106) mg/dL Calcium (8.5-10.1) mg/dL Total Bilirubin (0.2-1.0) mg/dL AST (15-37) U/L ALT (16-63) U/L Alkaline Phosphatase (46-116) U/L Total Protein (6.4-8.2) g/dl Albumin (3.4-5.0) g/dl Globulin gm/dL Albumin/Globulin Ratio (1-2) Lipase (73-393) U/L Urine Color Yellow (Yellow) Urine Appearance Clear (Clear) Urine pH 6.0 (5.0-8.0) Ur Specific [place] 1.020 (1.005-1.030) Urine Protein Negative (Negative) Urine Glucose (UA) Negative (Negative) Urine Ketones Negative (Negative) Urine Occult Blood Negative (Negative) Urine Nitrite Negative (Negative) Urine Bilirubin Negative (Negative) Urine Urobilinogen 0.2 (0.2-1.0) Ur Leukocyte Esterase Negative (Negative) Urine RBC 0-5 (0-5) /hpf Urine WBC 0-5 (0-5) /hpf Ur Squamous Epith Cells Not seen (0-5) /hpf Urine Bacteria Rare (FEW) /hpf Urine Mucus Rare (FEW) /hpf SARS-CoV-2 RNA (DANIKA) (NEGATIVE) Meds: Medications Generic Name Dose Route Start Last Admin Trade Name Freq PRN Reason Stop Dose Admin Sodium Chloride 1,000 mls @ 150 mls/hr 06/05/20 01:15 06/05/20 01:10 Normal Saline IV 150 mls/hr ASDIRECTED MALI Administration Discontinued Medications Generic Name Dose Route Start Last Admin Trade Name Freq PRN Reason Stop Dose Admin Hydromorphone HCl 1 mg 06/05/20 01:02 06/05/20 01:10 Dilaudid IVPUSH 06/05/20 01:03 1 mg ONETIME STA Administration Ondansetron HCl 4 mg 06/05/20 01:02 06/05/20 01:09 Zofran IVPUSH 06/05/20 01:03 4 mg ONETIME ONE Administration - Re-Assessments/Exams Free Text/Narrative Re-Assessment/Exam: 06/05/20 01:04 As above, the patient has been experiencing sharp right upper quadrant abdominal pain that radiates to his right lower quadrant since this past 06/01/2019. His pain is made worse with deep breaths, otherwise, he has not identified any modifiers. On examination, he is tender to his right upper quadrant only, with a true Carrington sign being present. Unfortunately, the patient ate about 2 hours ago, therefore I cannot get an ultrasound of his right upper quadrant. I have ordered a work-up that includes blood work, a urinalysis, and a CT of his abdomen and pelvis with oral and IV contrast. Since he may require admission or transfer to the OR, I have also ordered a swab for the SARS-CoV-2 virus. In the meantime, the patient will be treated with IV Dilaudid, IV Zofran, and IV fluid. 06/05/20 03:08 The patient's CBC is remarkable for very slight leukocytosis of 9.36 with 0% bandemia, and the remainder of his CBC being unremarkable. His CMP is remarkable for mild hyperglycemia of 142, with the remainder of his CMP being unremarkable. His lipase level is within normal limits at 106. His urinalysis is unremarkable. His swab for the SARS-CoV-[address] of the abdomen and pelvis with oral and IV contrast is read by Jose Luis as "No acute findings." 06/05/20 03:13 Test results discussed with the patient. As above, michael's work-up is unremarkable and does not explain the cause of his pain. His history is most consistent with cholecystitis, therefore I will discharge him home with prescriptions for both [place] and Zofran, along with a referral to Dr. Osborn. He was advised to eat as low-fat a diet as possible. Departure - Departure Time of Disposition: 03:17 Disposition: Home, Self-Care 01 Condition: Good Clinical Impression: Right upper quadrant abdominal pain of unknown etiology, Hyperglycemia due to type 2 diabetes mellitus - Discharge Information *PRESCRIPTION DRUG MONITORING PROGRAM REVIEWED*: Not Applicable *COPY OF PRESCRIPTION DRUG MONITORING REPORT IN PATIENT LEANNA: Not Applicable Prescriptions: Acetaminophen/HYDROcodone [Ishp[place]ing 325-5 MG] 1 - 2 tab PO Q6H PRN #20 tablet PRN Reason: Pain (Severe 7-10) Ondansetron [Zofran ODT] 1 tab PO Q8H PRN #10 tab.dis PRN Reason: Nausea/Vomiting Referrals: Hetal Fischer MD [Ordering Only Provider] - Bebo Kowalski MD [Primary Care Provider] - Mirta Sánchez MD [Physician] - Forms: ED Department Discharge Additional Instructions: You were seen in the ER for continued upper right abdominal pain radiating to your lower right abdomen, along with nausea and vomiting, since 06/01/2019. Work-up in the ER included several blood tests, a urinalysis, a swab for the SARS-CoV-2 virus, and a CT of your abdomen and pelvis with oral and IV contrast. Your blood sugar returned modestly elevated at 142. The remainder of your work-up was completely normal, and does not explain the cause of your symptoms. Based on your history and physical examination, you are most likely suffering from acute cholecystitis, also known as biliary colic, due to a sick gallbladder. We recommend that you avoid all oil, grease, and fat that you can, since eating these will induce pain in your gallbladder. You may take [id number] ibuprofen, 3 to 4 tablets (600-800 mg) up to every 8 hours, with food, as needed for discomfort. You may take 1 to 2 tablets of the prescription opioid [place]peming up to every 6 hours, as needed for pain not relieved by ibuprofen. If you take Ishpeming, do not drive or operate heavy machinery for 12 hours afterwards. Ishpeming may cause constipation, so consider taking a stool softener. You may dissolve 1 tablet of the antinausea medicine Zofran on your tongue up to every 8 hours, as needed for nausea/vomiting. We recommend that you follow-up with the surgeon Dr. Chelsea Sánchez at the next available appointment for further evaluation. If any other problems, please do not hesitate to return to the ER. Sepsis Event Note (ED) - Evaluation Sepsis Screening Result: No Definite Risk - Focused Exam Vital Signs: Vital Signs Temp Pulse Resp BP Pulse Ox 06/05/20 00:24 37.3 C 87 18 145/78 H 100 - My Orders Last 24 Hours: My Active Orders 06/05/20 01:02 Abdomen Pelvis w Cont [CT] Stat 06/05/20 01:15 Sodium Chloride 0.9% [Normal Saline] 1,000 ml IV ASDIRECTED - Assessment/Plan Last 24 Hours: My Active Orders 06/05/20 01:02 Abdomen Pelvis w Cont [CT] Stat 06/05/20 01:15 Sodium Chloride 0.9% [Normal Saline] 1,000 ml IV ASDIRECTED
[2020-06-05] MEDS ORDERED: Sodium Chloride 0.9% 1,000 ML IV SCH (01:15)
--- NOTE | 2020-06-05 11:13 | CT ---
CT abdomen and pelvis Technique: Multiple axial sections were obtained from above the dome of the diaphragm inferiorly through the pubic symphysis. Delayed images were also obtained through the bladder. Reconstructed coronal and sagittal images were obtained. Comparison: Prior CT abdomen and pelvis study of 07/16/19 and limited abdominal exam at 06/01/20. Findings: Visualized lung bases show nothing acute. Liver shows fatty infiltration. No focal abnormality is appreciated within the liver. Spleen has an upper limits of normal in measurement which is likely incidental. Adrenal glands show no nodule. Pancreas shows no discrete abnormality. Gallbladder contains no calcified gallstones. Kidneys show symmetric contrast enhancement without hydronephrosis or mass. Aorta shows no aneurysm. No retroperitoneal adenopathy or mesenteric abnormalities are seen. Appendix is seen which is normal. No pelvic mass or adenopathy is identified. Delayed images show contrast within the bladder. Bone window settings were reviewed which show no acute osseous finding. Impression: 1. Fatty infiltration within the liver. 2. Nothing acute is appreciated on CT study of the abdomen and pelvis. Diagnostic code #2 I agree with preliminary report from [facility], finalized on 06/05/20, 4:05 AM [employer]
== END 2020-06-05 03:39 | disposition home or self-care (01) ==
LOC: JD.ED 00:19
DX: E11.65 Type 2 diabetes mellitus with hyperglycemia (principal); I10 Essential (primary) hypertension; J45.909 Unspecified asthma, uncomplicated; E66.9 Obesity, unspecified; Z68.39 Body mass index [BMI] 39.0-39.9, adult; Z87.891 Personal history of nicotine dependence; Z88.8 Allergy status to other drugs, medicaments and biological substances; Z79.899 Other long term (current) drug therapy; Z20.822 Contact with and (suspected) exposure to COVID-19
CPT/HCPCS: 36415; 74177; 80053; 81001; 83690; 85007; 85027; 87635; 96374; 96375; 99284; J1170; J2405; J7030; U0002

== ENCOUNTER 2024-02-02 22:07 | Emergency (ER) | payer BC, MEDICAID | END 2024-02-03 01:30 | LOC: JD.ED 22:07 | DX: S39.840A Fracture of corpus cavernosum penis, initial encounter (principal); E11.9 Type 2 diabetes mellitus without complications; I10 Essential (primary) hypertension; J45.909 Unspecified asthma, uncomplicated; E66.9 Obesity, unspecified; Z79.899 Other long term (current) drug therapy; Z79.84 Long term (current) use of oral hypoglycemic drugs; Z88.8 Allergy status to other drugs, medicaments and biological substances; X58.XXXA Exposure to other specified factors, initial encounter | CPT/HCPCS: 99285 ==

== ENCOUNTER 2024-11-04 18:38 | Emergency (ER) | payer BC ==
[2024-11-04] MEDS ORDERED: Sodium Chloride 0.9% 10 ML Syringe FLUSH PRN (19:14)
[2024-11-04 19:49] LABS: BASOPHILS ABSOLUTE AUTO 0.1 K/mm3 (0.0-0.2); BASOPHILS PERCENT AUTO 1.3 % (0.0-1.0); EOSINOPHILS PERCENT AUTO 19.9 % (0.0-6.0); HEMATOCRIT 51.8 % (42.0-52.0); HEMOGLOBIN 16.4 gm/dl (14.0-18.0); IMMATURE GRAN ABSOLUTE AUTO 0.02 K/mm3 (0.00-0.05); IMMATURE GRAN PERCENT AUTO 0.2 % (0.0-0.4); LYMPHOCYTES ABSOLUTE AUTO 2.5 K/mm3 (1.0-4.8); LYMPHOCYTES PERCENT AUTO 24.8 % (24.0-44.0); MEAN CORPUSCULAR HEMOGLOBIN 25.6 pg (28.0-32.0); MEAN CORPUSCULAR HGB CONC 31.7 g/dl (32.0-36.0); MEAN CORPUSCULAR VOLUME 80.8 fl (83.0-99.0); MEAN PLATELET VOLUME 9.1 fl (9.4-12.4); MONOCYTES ABSOLUTE AUTO 0.9 K/mm3 (0.0-0.8); MONOCYTES PERCENT AUTO 8.7 % (0.0-8.0); NEUTROPHILS ABSOLUTE AUTO 4.6 K/mm3 (1.8-7.7); NEUTROPHILS PERCENT AUTO 45.1 % (41.0-71.0); PLATELET COUNT,PLT 324 K/mm3 (150-400); RED BLOOD CELL COUNT 6.41 M/mm3 (4.52-5.90); WHITE BLOOD CELL COUNT,WBC 10.14 K/mm3 (3.9-11.3)
[2024-11-04 20:11] LABS: A/G RATIO 1.1 (1-2); ANION GAP 10.9 (5-15); BILIRUBIN TOTAL 0.4 mg/dL (0.2-1.0); CALCIUM 9.1 mg/dL (8.5-10.1); EST CRCL DRUG DOSING (CG) 105.44 mL/min; POTASSIUM,K 3.9 mEq/L (3.5-5.1); PROTEIN TOTAL,TP 7.8 g/dl (6.4-8.2)
[2024-11-04 20:22] LABS: APPEARANCE,URINE CLEAR (Clear); BILIRUBIN,URINE NEGATIVE (Negative); COLOR,URINE YELLOW (Yellow); GLUCOSE,URINE 3+ (Negative); KETONES,URINE NEGATIVE (Negative); LEUKOCYTE ESTERASE,URINE NEGATIVE (Negative); NITRITE,URINE NEGATIVE (Negative); OCCULT BLOOD,URINE NEGATIVE (Negative); PROTEIN,URINE NEGATIVE (Negative); UROBILINOGEN,URINE 0.2 (0.2-1.0)
[2024-11-04 20:28] LABS: BACTERIA,URINE OCCASIONAL /hpf (FEW); MUCUS,URINE NOT SEEN /hpf (FEW); RBC,URINE 0-5 /hpf (0-5); SQUAMOUS EPITHELIAL CELLS,UR NOT SEEN /hpf (0-5); WBC,URINE 0-5 /hpf (0-5)
== END 2024-11-04 20:46 | disposition home or self-care (01) ==
LOC: JD.ED 18:38
DX: M54.50 Low back pain, unspecified (principal); I12.9 Hypertensive chronic kidney disease with stage 1 through stage 4 chronic kidney disease, or unspecified chronic kidney disease; E11.22 Type 2 diabetes mellitus with diabetic chronic kidney disease; N18.30 Chronic kidney disease, stage 3 unspecified; J45.909 Unspecified asthma, uncomplicated; E66.9 Obesity, unspecified; Z68.31 Body mass index [BMI] 31.0-31.9, adult; Z79.84 Long term (current) use of oral hypoglycemic drugs; Z79.899 Other long term (current) drug therapy; Z88.8 Allergy status to other drugs, medicaments and biological substances
CPT/HCPCS: 36415; 74176; 74176-26; 80053; 81001; 83690; 85025; 99284